=== PATIENT | male | born 1980 | race Caucasian/White ===

== ENCOUNTER 2016-06-06 12:35 | Emergency (ER) | payer MEDICAID, OTHER ==
[~2016-06-06] VITALS: Wt 65.0 kg
--- NOTE | 2016-06-06 13:32 | ERA ---
ER Documentation Chief Complaint Date/Time DATE: 06/06/16 TIME: 13:32 Chief Complaint LOW BACK PAIN FOR THE PAST 24 HOURS. NO RECENT TRAUMA HPI The patient is a 35-year-old male, presenting to the ER because of severe low back pain for 1 day, 10 over 10, worse with movement. He had similar symptoms about months ago when he was treated with pain medication and injection. He denies fever, chills, neck pain, chest pain, dyspnea, abdominal pain, vomiting, diarrhea, constipation. He denies urinary or fecal incontinence, denies any history of IV drug abuse. He works as a cook, denies smoking, drinks socially Past medical history: Back pain Past surgical history: None ROS All systems reviewed and are negative except as per history of present illness. Medications Home Meds Active Scripts Ibuprofen* (Motrin*) 600 Mg Tab, 600 MG PO Q6H Y for PAIN AND OR ELEVATED TEMP, #30 TAB Prov:RENETTA POLANCO MD 06/06/16 Hydrocodone/Acetaminophen (Union 10-325 Tablet) 1 Each Tablet, 1 TAB PO Q6H Y for PAIN, #10 TAB Prov:RENETTA POLANCO MD 06/06/16 Allergies Allergies: Coded Allergies: No Known Allergy (Unverified , 06/06/16) Physical Exam Vitals Vital Signs Date Time Temp Pulse Resp B/P Pulse Ox O2 Delivery O2 Flow Rate FiO2 06/06/16 12:55 98.5 92 20 136/78 98 Physical Exam Const: No acute distress. Head: Atraumatic. Eyes: Normal Conjunctiva. ENT: Normal External Ears, Nose and Mouth. Neck: Full range of motion. No meningismus. Resp: Clear to auscultation bilaterally. Cardio: Regular rate and rhythm, no murmurs. Abd: Soft, non distended, normal bowel sounds, non tender. Skin: No petechiae or rashes. Back: Moderate lumbar tenderness, no ecchymosis, no crepitus, not warm to touch Ext: No cyanosis, or edema. Neur: Awake and alert. No focal deficit Psych: Normal Mood and Affect. Results 24 hrs Current Medications Medications (Trade) Dose Ordered Sig/Kevin Route PRN Reason Start Time Stop Time Status Last Admin Dose Admin Morphine Sulfate (morphine) 4 mg ONCE ONCE IM 06/06/16 14:00 06/06/16 14:01 DC 06/06/16 13:47 Ondansetron HCl (Zofran Odt) 4 mg ONCE STAT ODT 06/06/16 13:39 06/06/16 13:40 DC 06/06/16 13:47 Hydromorphone HCl (Dilaudid) 1 mg ONCE STAT IM 06/06/16 14:46 06/06/16 14:47 DC Ketorolac Tromethamine (Toradol) 60 mg ONCE STAT IM 06/06/16 14:46 06/06/16 14:47 DC Procedures/[place] [address] Radiology Main Line: [phone] DIAGNOSTIC IMAGING REPORT Patient: JEFF HUGHES : 1980 Age: 35 Sex: M MR #: [id number] DOS: 06/06/16 1339 Ordering MD: RENETTA POLANCO MD Location: [facility] Room/Bed: PROCEDURE: CT Lumbar Spine without contrast. CLINICAL INDICATION: Back pain. TECHNIQUE: Noncontrast CT of the lumbar spine was performed with multiplanar reformatted images generated from the axial acquired data. The administered radiation dose was CTDI vol = 11.51 mGy, DLP = 346.97 mGy-cm. COMPARISON: There are no similar studies submitted for comparison. FINDINGS: There is normal lumbar lordosis. The vertebral body heights are maintained. There is normal alignment. There is no destructive osseous lesion. There is no acute fracture. The discs are normal in height. The anterior posterior diameter of the spinal canal is 13 mm compatible with congenital spinal canal stenosis. T12-L1 : There is no disc herniation, spinal canal, or foraminal stenosis. L1-L2 : There is no disc herniation, spinal canal, or foraminal stenosis. L2-L3 : There is no disc herniation, spinal canal, or foraminal stenosis. L3-L4 : There is no disc herniation, spinal canal, or foraminal stenosis. L4-L5 : There is a 1 mm circumferential disk bulge with a 2 mm left subarticular disk protrusion effacing the left lateral recess. There is mild to moderate spinal canal stenosis. There is mild bilateral foraminal stenosis. L5-S1 : There is a 1 mm circumferential disk bulge with mild bilateral facet arthropathy without spinal canal stenosis. There is mild bilateral foraminal stenosis. The sacroiliac joints are intact. IMPRESSION: 1. Congenital spinal canal stenosis. 2. No acute fracture. 3. L4-L5 minimal circumferential disk bulge with a 2 mm left subarticular disk protrusion with mild to moderate spinal canal stenosis. There is mild bilateral foraminal stenosis. 4. L5-S1 minimal circumferential disk bulge with mild bilateral foraminal stenosis. Further findings as detailed above. RPTAT: PP .Gamal Matias MD, MD Date Time Electronically viewed and signed by .Gamal Matias MD, MD on 06/06/2016 14:28 .F/ CC: RENETTA POLANCO MD MEDICAL MAKING DECISION: The patient is a 35-year-old male, presenting with acute on chronic low back pain due to disc bulging. He was treated with morphine 4 mg IM, Dilaudid 1 mg IM, Toradol 60 mg IM and Zofran ODT good response. The differential diagnoses considered include but are not limited to caudal equina syndrome, spinal abscess, DJD, diskitis, lumbar radiculopathy. Departure Diagnosis: Primary Impression: Back pain Condition: Good Comments He was discharged with crutches, Motrin, Union and advised to follow-up with his doctor tomorrow for reevaluation and back MRI immediately then referral to spine surgeon for further evaluation The patient's blood pressure was elevated (>120/80) but appears stable without evidence of hypertension emergency or urgency. The patient was counseled about the risks of hypertension and urged to pursue outpatient monitoring and therapy within a week with their primary care physician. RENETTA POLANCO MD Jun 06, 2016 13:32
[2016-06-06] MEDS ORDERED: ONDANSETRON (ODT) 4 MG TAB ODT STA (13:39)
[2016-06-06] MEDS ORDERED: morphine 10 MG INJ IM ONE (14:00)
--- NOTE | 2016-06-06 14:28 | RADRPT ---
PROCEDURE: CT Lumbar Spine without contrast. CLINICAL INDICATION: Back pain. TECHNIQUE: Noncontrast CT of the lumbar spine was performed with multiplanar reformatted images gen erated from the axial acquired data. The administered radiation dose was CTDI vol = 11.51 mGy, DLP = 346.97 mGy-cm. COMPARISON: There are no similar studies submitted for comparison. FINDINGS: There is normal lumbar lordosis. The vertebral body heights are maintained. There is normal alignment. There is no destructive osseous lesion. There is no acute fracture. The discs are normal in height. The anterior posterior diameter of the spinal canal is 13 mm compatible with congenital spinal canal stenosis. T12-L1 : There is no disc herniation, spinal canal, or foraminal stenosis. L1-L2 : There is no disc herniation, spinal canal, or foraminal stenosis. L2-L3 : There is no disc herniation, spinal canal, or foraminal stenosis. L3-L4 : There is no disc herniation, spinal canal, or foraminal stenosis. L4-L5 : There is a 1 mm circumferential disk bulge with a 2 mm left subarticular disk protrusion eff acing the left lateral recess. There is mild to moderate spinal canal stenosis. There is mild bila teral foraminal stenosis. L5-S1 : There is a 1 mm circumferential disk bulge with mild bilateral facet arthropathy without spi nal canal stenosis. There is mild bilateral foraminal stenosis. The sacroiliac joints are intact. IMPRESSION: 1. Congenital spinal canal stenosis. 2. No acute fracture. 3. L4-L5 minimal circumferential disk bulge with a 2 mm left subarticular disk protrusion with mild to moderate spinal canal stenosis. There is mild bilateral foraminal stenosis. 4. L5-S1 minimal circumferential disk bulge with mild bilateral foraminal stenosis. Further findings as detailed above. RPTAT: PP .Gamal Matias MD, Date Time Electronically viewed and signed by .Gamal Matias MD, on 06/06/2016 14:28 .F/
[2016-06-06] MEDS ORDERED: HYDR-902 PO (14:36)
[2016-06-06] MEDS ORDERED: IBUP-1542 PO (14:36)
[2016-06-06] MEDS ORDERED: HYDROmorphONE 1 MG/ML SYG IM STA (14:46)
[2016-06-06] MEDS ORDERED: KETOROLAC 60 MG INJ IM STA (14:46)
== END 2016-06-06 15:37 | disposition home or self-care (01) ==
LOC: FTE 12:35
DX: M54.5 Low back pain (principal)
CPT/HCPCS: 72131; J1170; J1885; J2270; Z7610; 96372

== ENCOUNTER 2016-06-12 14:55 | Emergency (ER) | payer MEDICAID ==
[~2016-06-12] VITALS: Wt 77.3 kg
[~2016-06-12 14:55] MED LIST: HYDR-902 PO; IBUP-1542 PO
[2016-06-12] MEDS ORDERED: KETOROLAC 30 MG INJ IM STA (15:51)
[2016-06-12] MEDS ORDERED: DEXAMETHASONE 10 MG/ML 1 ML INJ PO ONE (16:00)
[2016-06-12] MEDS ORDERED: HYDR-906 PO (16:11)
[2016-06-12] MEDS ORDERED: PRED20TA PO (16:11)
--- NOTE | 2016-06-12 17:21 | ERD ---
ER Documentation Chief Complaint Date/Time DATE: 06/12/16 TIME: 17:17 Chief Complaint back pain HPI Patient complains of low back pain for the past 1-2 weeks. He was seen here a few days ago and a CAT scan of his lower back was done, CAT scan showed lumbar disc bulge and neural foraminal stenosis. His pain in the right lower back is worse with bending is aching and severe. He says 1 of the pills that they gave him did help with the pain but the other one did not help, he was prescribed Fackler and ibuprofen few days ago when he was here. He has not seen his primary doctor. He has no bowel or bladder incontinence no saddle anesthesia no fevers chills nausea vomiting. 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 ROS All systems reviewed and are negative except as per history of present illness. Medications Home Meds Active Scripts Prednisone* (Prednisone*) 20 Mg Tab, 40 MG PO DAILY for 9 Days, TAB Prov:MICHELLE ZAYAS DO 06/12/16 Hydrocodone/Acetaminophen (Fackler 5-325 Tablet) 1 Each Tablet, 1 TAB PO Q6H Y for PAIN, #15 TAB Prov:MICHELLE ZAYAS DO 06/12/16 Ibuprofen* (Motrin*) 600 Mg Tab, 600 MG PO Q6H Y for PAIN AND OR ELEVATED TEMP, #30 TAB Prov:RENETTA POLANCO MD 06/06/16 Hydrocodone/Acetaminophen (Fackler 10-325 Tablet) 1 Each Tablet, 1 TAB PO Q6H Y for PAIN, #10 TAB Prov:RENETTA POLANCO MD 06/06/16 Allergies Allergies: Coded Allergies: No Known Allergy (Unverified , 06/06/16) PMhx/Soc Medical and Surgical Hx: pt denies Medical Hx, pt denies Surgical Hx Hx Alcohol Use: No Hx Substance Use: No Hx Tobacco Use: No Smoking Status: Never smoker Physical Exam Vitals Vital Signs Date Time Temp Pulse Resp B/P Pulse Ox O2 Delivery O2 Flow Rate FiO2 06/12/16 15:08 98.0 88 20 132/72 98 Physical Exam Const: [] Head: Atraumatic Eyes: Normal Conjunctiva ENT: Normal External Ears, Nose and Mouth. Neck: Full range of motion..~ No meningismus. Resp: Clear to auscultation bilaterally Cardio: Regular rate and rhythm, no murmurs Abd: Soft, non tender, non distended. Normal bowel sounds Skin: No petechiae or rashes Back: Right lower lumbar area mild tenderness to palpation, no midline bony tenderness to palpation in the lumbar area, pain with flexion to 30 extension at 5 mild pain with bilateral rotation no pain with squatting or side bending. Positive left contralateral straight leg raise, right straight leg raise causes pain in the right lower back. Patellar DTRs are 2 out of 4 bilaterally. Flexion extension of the hip and the knees are 5 out of 5 BLE Ext: No cyanosis, or edema Neur: Awake and alert Psych: Normal Mood and Affect Results 24 hrs Current Medications Medications (Trade) Dose Ordered Sig/Kevin Route PRN Reason Start Time Stop Time Status Last Admin Dose Admin Ketorolac Tromethamine (Toradol) 30 mg ONCE STAT IM 06/12/16 15:51 06/12/16 15:53 DC 06/12/16 16:01 Dexamethasone (Decadron) 10 mg ONCE ONCE PO 06/12/16 16:00 06/12/16 16:01 DC 06/12/16 16:01 [place] [id number] Radiology Main Line: [phone] DIAGNOSTIC IMAGING REPORT Patient: JEFF HUGHES : 1980 Age: 35 Sex: M MR #: [id number] DOS: 06/06/16 1339 Ordering MD: RENETTA POLANCO MD Location: [facility] Room/Bed: PROCEDURE: CT Lumbar Spine without contrast. CLINICAL INDICATION: Back pain. TECHNIQUE: Noncontrast CT of the lumbar spine was performed with multiplanar reformatted images generated from the axial acquired data. The administered radiation dose was CTDI vol = 11.51 mGy, DLP = 346.97 mGy-cm. COMPARISON: There are no similar studies submitted for comparison. FINDINGS: There is normal lumbar lordosis. The vertebral body heights are maintained. There is normal alignment. There is no destructive osseous lesion. There is no acute fracture. The discs are normal in height. The anterior posterior diameter of the spinal canal is 13 mm compatible with congenital spinal canal stenosis. T12-L1 : There is no disc herniation, spinal canal, or foraminal stenosis. L1-L2 : There is no disc herniation, spinal canal, or foraminal stenosis. L2-L3 : There is no disc herniation, spinal canal, or foraminal stenosis. L3-L4 : There is no disc herniation, spinal canal, or foraminal stenosis. L4-L5 : There is a 1 mm circumferential disk bulge with a 2 mm left subarticular disk protrusion effacing the left lateral recess. There is mild to moderate spinal canal stenosis. There is mild bilateral foraminal stenosis. L5-S1 : There is a 1 mm circumferential disk bulge with mild bilateral facet arthropathy without spinal canal stenosis. There is mild bilateral foraminal stenosis. The sacroiliac joints are intact. IMPRESSION: 1. Congenital spinal canal stenosis. 2. No acute fracture. 3. L4-L5 minimal circumferential disk bulge with a 2 mm left subarticular disk protrusion with mild to moderate spinal canal stenosis. There is mild bilateral foraminal stenosis. 4. L5-S1 minimal circumferential disk bulge with mild bilateral foraminal stenosis. Further findings as detailed above. RPTAT: PP .Gamal Matias MD, MD Date Time Electronically viewed and signed by .Gamal Matias MD, MD on 06/06/2016 14:28 .F/ Procedures/MDM CAT scan shows lumbar disc disease and his pain is likely secondary to lumbar disc disease. I doubt discitis cauda equina syndrome abscess osteomyelitis. He has no neurological deficits no saddle anesthesia no bowel or bladder incontinence so he stable for discharge and should follow-up with his primary doctor and consider MRI or epidural or other treatments. We gave him Toradol and Decadron here and will give steroids for home and also Fackler for home and he should follow-up with his primary doctor and/or spine surgeon. I given him a work note. ED precautions discussed. His high blood pressure is likely secondary to his pain and I doubt hypertensive urgency or emergency. Departure Diagnosis: Primary Impression: Lumbar disc disease Additional Impression: High blood pressure Condition: Stable Patient Instructions: Self-Care for Low Back Pain, Possible Causes of Low Back or Leg Pain, Causes of Lumbar (Low Back) Pain, What Is Lumbar Epidural Injection ? Referrals: [facility] () Usted se mcginnis hecho un examen mdico de control que le indica que no est en luciano condicin que requiera tratamiento urgente en el Departamento de Emergencia. Un estudio ms profundo y el tratamiento de palm condicin pueden esperar sin ningn riesgo hasta que usted sea atendida/o en el consultorio de palm mdico o luciano cl gloria. Es responsabilidad suya arreglar luciano gurpreet para el seguimiento del sofie. MANEJO DE CONDICIONES NO URGENTES EN EL FUTURO 1) Si usted tiene un mdico de atencin primaria: Usted debera llamar a palm mdico de atencin primaria antes de venir al departamento de emergencia. Despus de las horas de consultorio, palm doctor o palm asociado/a est disponible por telfono. El mdico o enfermero de neymar en el servicio telefnico puede asesorarle por sandy medio para atender el problema, o sofie contrario se puede programar luciano gurpreet. 2) Si usted no tiene un mdico de atencin primaria: Llame al mdico o clnica de referencia que aparece abajo liliane las horas de consultorio para hacer luciano gurpreet para que le vean. CLINICAS: [facility] [phone] [facility] [phone] [facility] [phone] [facility] [phone] [facility] [phone] [facility]. [phone] [address] [facility] () Usted se mcginnis hecho un examen mdico de control que le indica que no est en luciano condicin que requiera tratamiento urgente en el Departamento de Emergencia. Un estudio ms profundo y el tratamiento de palm condicin pueden esperar sin ningn riesgo hasta que usted sea atendida/o en el consultorio de palm mdico o luciano cl gloria. Es responsabilidad suya arreglar luciano gurpreet para el seguimiento del sofie. MANEJO DE CONDICIONES NO URGENTES EN EL FUTURO 1) Si usted tiene un mdico de atencin primaria: Usted debera llamar a palm mdico de atencin primaria antes de venir al departamento de emergencia. Despus de las horas de consultorio, palm doctor o palm asociado/a est disponible por telfono. El mdico o enfermero de neymar en el servicio telefnico puede asesorarle por sandy medio para atender el problema, o sofie contrario se puede programar luciano gurpreet. 2) Si usted no tiene un mdico de atencin primaria: Llame al mdico o condado institucions de referencia que aparece abajo liliane las horas de consultorio para hacer luciano gurpreet para que le vean. SI USTED NO PUEDE PAGAR PARA JALYN UN MEDICO puede ir a: [facility] [address] [place] [address] [facility] [address] [place] [address] [facility] [address] [place] [address] PARA KOMAL [facility] [address] [place] [address] MICHELLE ZAYAS DO Jun 12, 2016 17:21
== END 2016-06-12 16:21 | disposition home or self-care (01) ==
LOC: FTE 14:55
DX: M51.37 Other intervertebral disc degeneration, lumbosacral region (principal); R03.0 Elevated blood-pressure reading, without diagnosis of hypertension
CPT/HCPCS: J1100; J1885; 96372